=== PATIENT | female | born 1995 | race Two or more races ===

== ENCOUNTER 2023-11-22 12:54 | Emergency (ER) | payer MEDICAID ==
[~2023-11-22] VITALS: Ht 165.1 cm; Wt 70.3 kg
[2023-11-22 14:27] LABS: APPEARANCE,URINE Clear (CLEAR); BILIRUBIN,URINE SMALL (NEGATIVE); BLOOD, URINE Trace-intact Ery/uL (NEGATIVE); COLOR,URINE YELLOW (YELLOW); KETONES,URINE 40 mg/dL (NEGATIVE); LEUKOCYTE ESTERASE ,URINE Negative (NEGATIVE); NITRITE, URINE Negative (NEGATIVE); PH,URINE 5.5 (5.0-8.0); PREGNANCY TEST URINE QUAL NEGATIVE (NEGATIVE); PROTEIN,URINE Negative (NEGATIVE); UGLUCOSE Negative (NEGATIVE); UROBILINOGEN,URINE 0.2 EU/dL (0.2)
[2023-11-22 15:01] LABS: ADD URINE CULTURE NO; BACTERIA,URINE 1+ /HPF (None Seen); WBC,URINE 0-2 /HPF (0-3)
[2023-11-22] MEDS ORDERED: SULF1TAB48 PO (15:04)
[2023-11-22] MEDS ORDERED: CEPH500C2 PO (15:04)
[2023-11-22] MEDS ORDERED: IBUP-1955 PO (15:04)
[2023-11-22] MEDS: BACI/NEOM/POLY B OINT PKT 1 UDPKT PACKET TP ONE (15:19)
[2023-11-22 15:36] VITALS: BP 131/86; TEMP 98; O2SAT 96
== END 2023-11-22 15:37 | disposition home or self-care (01) ==
LOC: ER 13:31
DX: N61.0 Mastitis without abscess (principal); R30.0 Dysuria; J45.909 Unspecified asthma, uncomplicated
CPT/HCPCS: 81001; 84703-TC